=== PATIENT | male | born 1960 | race Caucasian/White ===

== ENCOUNTER 2017-08-06 17:48 | Emergency (ER) | payer MEDICARE, OTHER, MEDICAID ==
[2017-08-06] MEDS: METOCLOPRAMIDE 10 MG INJ IV (21:47)
[2017-08-06] MEDS: SOD CHLORIDE 0.9% 500 ML IV (21:47)
[2017-08-06] MEDS: DIPHENHYDRAMINE 50 MG INJ IV (21:48)
[2017-08-06 22:25] LABS: ADD MAN DIFF? NO
[2017-08-06 22:26] LABS: WHITE BLOOD COUNT 5.2 10^3/ul (4.8-10.8)
[2017-08-06 22:26] LABS: BASOPHILS % 0.8 % (0.0-2.0); EOSINOPHILS # 0.1 10^3/ul (0.0-0.5); EOSINOPHILS % 2.3 % (0.0-7.0); HEMATOCRIT 38.2 % (42.0-52.0); HEMOGLOBIN 12.4 g/dl (14.0-18.0); LYMPHOCYTES # 2.3 10^3/ul (0.8-2.9); LYMPHOCYTES % 44.9 % (15.0-51.0); MEAN CORPUSCULAR HEMOGLOBIN 27.1 pg (29.0-33.0); MEAN CORPUSCULAR HGB CONC 32.5 g/dl (32.0-37.0); MEAN CORPUSCULAR VOLUME 83.4 fl (82.0-101.0); MEAN PLATELET VOLUME 12.7 fl (7.4-10.4); MONOCYTE # 0.6 10^3/ul (0.3-0.9); MONOCYTES % 11.7 % (0.0-11.0); NEUTROPHIL # 2.1 10^3/ul (1.6-7.5); NEUTROPHILS % 40.1 % (39.0-77.0); PLATELET COUNT 128 10^3/UL (140-415); RED BLOOD COUNT 4.58 10^6/ul (4.70-6.10); RED CELL DISTRIBUTION WIDTH 13.8 % (11.5-14.5)
[2017-08-06 22:30] LABS: INR 1.15; PROTIME 14.9 Sec (11.9-14.9); PT RATIO 1.2
[2017-08-06 22:31] LABS: PARTIAL THROMBOPLASTIN TIME 34.7 Sec (25.0-35.0)
[2017-08-06 22:33] LABS: ALANINE AMINOTRANSFERASE 39 IU/L (13-69); ALBUMIN 4.7 g/dl (3.3-4.9); ALBUMIN/GLOBULIN RATIO 1.42; ALKALINE PHOSPHATASE 135 IU/L (42-121); ANION GAP 29 (8-16); ASPARTATE AMINO TRANSFERASE 42 IU/L (15-46); BLOOD UREA NITROGEN 74 mg/dl (7-20); CALCIUM 9.5 mg/dl (8.4-10.2); CARBON DIOXIDE 25 mmol/L (21-31); CHLORIDE 89 mmol/L (97-110); CREATININE 9.45 mg/dl (0.61-1.24); GLUCOSE 165 mg/dl (70-220); LIPASE 209 U/L (23-300); POTASSIUM 5.5 mmol/L (3.5-5.1); SODIUM 137 mmol/L (135-144)
[2017-08-06] MEDS: ONDANSETRON 4 MG INJ IV (23:26)
[2017-08-06] MEDS: FENTAnyl 50 MCG/ML VIAL IV (23:26)
[2017-08-07 00:07] LABS: URINE BLOOD (Dip) POC Trace-intact (NEGATIVE); URINE KETONES (Dip) POC Negative (NEGATIVE); URINE LEUKOCYTE EST (Dip) POC Trace (NEGATIVE); URINE NITRITE (Dip) POC Negative (NEGATIVE); URINE TOTAL PROTEIN POC 2+ (NEGATIVE)
[2017-08-07 00:07] LABS: URINE PH (Dip) POC 8.5 (5.0-8.5)
[2017-08-07] MEDS: LIDOCAINE/MYLANTA 40 ML BTL PO (00:20)
[2017-08-07 00:37] LABS: ADD UMIC YES; UR ASCORBIC ACID NEGATIVE (NEGATIVE); UR BACTERIA FEW /HPF (NONE SEEN); UR BILIRUBIN (Dip) NEGATIVE (NEGATIVE); UR BLOOD (Dip) 1+ mg/dL (NEGATIVE); UR CLARITY SLIGHTLY CLOUDY (CLEAR); UR COLOR YELLOW (YELLOW); UR GLUCOSE (Dip) 2+ mg/dL (NEGATIVE); UR KETONES (Dip) NEGATIVE (NEGATIVE); UR LEUKOCYTE ESTERASE (Dip) TRACE Leu/ul (NEGATIVE); UR NITRITE (Dip) NEGATIVE (NEGATIVE); UR RBC 2 /HPF (0-5); UR SPECIFIC GRAVITY (Dip) 1.009 (1.003-1.030); UR TOTAL PROTEIN (Dip) 2+ mg/dl (NEGATIVE); UR UROBILINOGEN (Dip) NEGATIVE (NEGATIVE); UR WBC 8 /HPF (0-5)
== END 2017-08-07 02:13 | disposition home or self-care (01) ==
LOC: E/R 08-07 02:13 → FTE 17:48
DX: N30.00 Acute cystitis without hematuria (principal); R19.7 Diarrhea, unspecified; R11.10 Vomiting, unspecified; E87.5 Hyperkalemia; I12.0 Hypertensive chronic kidney disease with stage 5 chronic kidney disease or end stage renal disease; N18.6 End stage renal disease; F17.210 Nicotine dependence, cigarettes, uncomplicated; D64.9 Anemia, unspecified; Z99.2 Dependence on renal dialysis
CPT/HCPCS: 36415; 80053; 81001; 81003; 82962; 83690; 85025; 85610; 85730; 96374; 96375; 99284-25

== ENCOUNTER 2018-01-17 14:54 | Emergency (ER) | payer MEDICARE, OTHER ==
[2018-01-17] MEDS: METOCLOPRAMIDE 10 MG INJ IV (18:44)
[2018-01-17 18:47] LABS: ADD MAN DIFF? NO
[2018-01-17 18:52] LABS: URINE PH (Dip) POC 8.5 (5.0-8.5)
[2018-01-17 18:52] LABS: URINE BLOOD (Dip) POC Trace-intact (NEGATIVE); URINE KETONES (Dip) POC Negative (NEGATIVE); URINE LEUKOCYTE EST (Dip) POC 1+ (NEGATIVE); URINE NITRITE (Dip) POC Negative (NEGATIVE); URINE TOTAL PROTEIN POC 3+ (NEGATIVE)
[2018-01-17 18:55] LABS: BASOPHILS % 0.6 % (0.0-2.0); EOSINOPHILS # 0.2 10^3/ul (0.0-0.5); EOSINOPHILS % 3.4 % (0.0-7.0); HEMATOCRIT 33.4 % (42.0-52.0); HEMOGLOBIN 10.6 g/dl (14.0-18.0); LYMPHOCYTES # 1.4 10^3/ul (0.8-2.9); LYMPHOCYTES % 28.5 % (15.0-51.0); MEAN CORPUSCULAR HEMOGLOBIN 27.7 pg (29.0-33.0); MEAN CORPUSCULAR HGB CONC 31.7 g/dl (32.0-37.0); MEAN CORPUSCULAR VOLUME 87.2 fl (82.0-101.0); MEAN PLATELET VOLUME 10.8 fl (7.4-10.4); MONOCYTE # 0.5 10^3/ul (0.3-0.9); MONOCYTES % 10.7 % (0.0-11.0); NEUTROPHIL # 2.9 10^3/ul (1.6-7.5); NEUTROPHILS % 56.6 % (39.0-77.0); PLATELET COUNT 176 10^3/UL (140-415); RED BLOOD COUNT 3.83 10^6/ul (4.70-6.10); RED CELL DISTRIBUTION WIDTH 16.1 % (11.5-14.5)
[2018-01-17 18:55] LABS: WHITE BLOOD COUNT 5.1 10^3/ul (4.8-10.8)
[2018-01-17 19:19] LABS: ALANINE AMINOTRANSFERASE 13 IU/L (13-69); ALBUMIN 4.3 g/dl (3.3-4.9); ALBUMIN/GLOBULIN RATIO 1.48; ALKALINE PHOSPHATASE 106 IU/L (42-121); ANION GAP 21 (8-16); ASPARTATE AMINO TRANSFERASE 20 IU/L (15-46); BILIRUBIN,TOTAL 0.2 mg/dl (0.2-1.3); BLOOD UREA NITROGEN 65 mg/dl (7-20); CALCIUM 9.3 mg/dl (8.4-10.2); CARBON DIOXIDE 27 mmol/L (21-31); CHLORIDE 94 mmol/L (97-110); CREATININE 11.25 mg/dl (0.61-1.24); GLUCOSE 167 mg/dl (70-220); LIPASE 124 U/L (23-300); POTASSIUM 4.7 mmol/L (3.5-5.1); SODIUM 137 mmol/L (135-144); TOTAL PROTEIN 7.2 g/dl (6.1-8.1)
[2018-01-17] MEDS: CEFTRIAXONE 1 GM/50 ML (PMX) 50 ML IVPB (19:22)
[2018-01-17] MEDS: hydrALAzine 20 MG INJ IV (19:23)
[2018-01-17] MEDS ORDERED: CEFTRIAXONE 1 GM/50 ML (PMX) 50 ML IVPB (19:30)
== END 2018-01-17 21:30 | disposition home or self-care (01) ==
LOC: E/R 14:54
DX: N39.0 Urinary tract infection, site not specified (principal); D64.9 Anemia, unspecified; I12.9 Hypertensive chronic kidney disease with stage 1 through stage 4 chronic kidney disease, or unspecified chronic kidney disease; N18.9 Chronic kidney disease, unspecified; E11.9 Type 2 diabetes mellitus without complications; Z87.891 Personal history of nicotine dependence; Z99.2 Dependence on renal dialysis
CPT/HCPCS: 36415; 80053; 81003; 83690; 85025; 87086; 96374; 96375; 99284-25